=== PATIENT | female | born 1940 | race Caucasian/White ===

== ENCOUNTER 2017-03-14 07:33 | Emergency (ER) | payer MEDICARE, BC ==
[~2017-03-14] VITALS: Ht 167.6 cm; Wt 115.9 kg
[~2017-03-14 07:33] MED LIST: ACTONEL35 MG OR; ACTONEL5 MG PO; ALTACE5 MG PO; AMOXICILLIN875 MG OR; ASA LO-DOSE81 MG OR; BABY ASPIRIN81 MG OR; BACTRIM DS1 TAB OR; BAYER ASPIRIN E81 MG PO; CALCIUM600 M1 OR; CALCIUM600 M1 PO; CELEBREX100 MG PO; CEPHALEXIN500 MG PO; CIPRO500 MG PO; CIPRODEX1 ML AD; CLOTRIMAZOLE12 EX; DIFLUCAN150 MG OR; DIFLUCAN150 MG PO; DOXYCYCL HYC100 MG PO; HYDROCHLOROT25 MG OR; IPRATROPIU0.5 MG/3 M IN; LEVOTHYROXIN100 MCG PO; LORTAB 10-325 M1 TAB PO; LOTRISON1 EX; METFORMIN500 MG PO; MULTI VIT PO; NAPROSYN500 MG OR; NO MEDS; NYSTAT/TRIA2 EX; NYSTATIN100000 M1 OR; PROAIR HFA IN; RAMIPRIL2.5 MG PO; STERAPRED DS10 MG; SYNTHROID175 MCG OR; TETRACYCLINE250 MG PO; ULTRAM50 MG OR
[2017-03-14] MEDS ORDERED: ADULT ASPIRIN E81 MG PO (07:56)
[2017-03-14 08:03] LABS: HEMATOCRIT 40.7 % (37.0-47.0); IMMATURE GRANULOCYTES 0.4 % (0.0-1.0); MEAN CELL VOLUME 85.9 fL CALC (80.0-100.0); MEAN CORPUSCULAR HGB 27.4 pG CALC (26.0-32.0); MEAN CORPUSCULAR HGB CONC 31.9 g/L CALC (32.0-36.0); NEUT# 6.64 thou/uL (2.00-7.15); RED BLOOD COUNT 4.74 mill/uL (4.20-5.60); RED CELL DISTRI WIDTH 14.7 % (11.5-15.5)
[2017-03-14 08:14] LABS: ANION GAP 14 (6-22 (CALC)); BUN 10 mg/dL (8-23); BUN/CREATININE RATIO 11 (12-20 (CALC)); CALCIUM 9.6 mg/dL (8.4-10.2); CARBON DIOXIDE 28 mmol/l (22-30); CHLORIDE 99 mmol/l (95-108); CREATININE 0.9 mg/dL (0.5-1.0); GFR > 60 ML/MIN (>=60 (CALC)); GFR FOR AFR.AMER. > 60 ML/MIN (>=60 (CALC)); GLUCOSE 137 mg/dL (82-115); POTASSIUM 4.5 mmol/l (3.5-5.1); SODIUM 137 mmol/l (137-146)
[2017-03-14] MEDS ORDERED: ALBUTEROL SUL0.083 % IN (08:31)
[2017-03-14] MEDS ORDERED: ZPAK PO (08:31)
[2017-03-14] MEDS ORDERED: PREDNISONE50 MG PO (08:31)
[2017-03-14 08:45] VITALS: BP 111/54
== END 2017-03-14 08:55 | disposition home or self-care (01) ==
LOC: ED 07:33
PROVIDERS: Family Medicine
DX: J44.1 Chronic obstructive pulmonary disease with (acute) exacerbation (principal); R06.02 Shortness of breath; R05 Cough; R06.2 Wheezing

== ENCOUNTER 2017-03-16 12:28 | Inpatient (IN) | payer MEDICARE, BC ==
[~2017-03-16] VITALS: Ht 167.6 cm; Wt 118.0 kg
[~2017-03-16 12:28] MED LIST changes: +ADULT ASPIRIN E81 MG PO; +ALBUTEROL SUL0.083 % IN; +PREDNISONE50 MG PO; +ZPAK PO
[2017-03-16 13:02] LABS: HEMATOCRIT 38.3 % (37.0-47.0); HEMOGLOBIN 12.4 g/dl (12.0-16.0); IMMATURE GRANULOCYTES 0.7 % (0.0-1.0); MEAN CELL VOLUME 84.9 fL CALC (80.0-100.0); MEAN CORPUSCULAR HGB 27.5 pG CALC (26.0-32.0); MEAN CORPUSCULAR HGB CONC 32.4 g/L CALC (32.0-36.0); NEUT# 14.19 thou/uL (2.00-7.15); RED BLOOD COUNT 4.51 mill/uL (4.20-5.60); RED CELL DISTRI WIDTH 14.9 % (11.5-15.5)
[2017-03-16 13:17] LABS: ALBUMIN 4.1 g/dL (3.2-5.0); ALKALINE PHOSPHATASE 77 u/l (38-126); ANION GAP 14 (6-22 (CALC)); BILIRUBIN, TOTAL 0.5 mg/dL (0.0-1.4); BUN 16 mg/dL (8-23); BUN/CREATININE RATIO 18 (12-20 (CALC)); CALCIUM 9.2 mg/dL (8.4-10.2); CARBON DIOXIDE 27 mmol/l (22-30); CHLORIDE 99 mmol/l (95-108); CREATININE 0.9 mg/dL (0.5-1.0); GFR > 60 ML/MIN (>=60 (CALC)); GFR FOR AFR.AMER. > 60 ML/MIN (>=60 (CALC)); GLUCOSE 111 mg/dL (82-115); POTASSIUM 4.3 mmol/l (3.5-5.1); SGOT/AST 35 u/l (9-36); SGPT/ALT 46 u/l (11-66); SODIUM 136 mmol/l (137-146); TOTAL PROTEIN 6.8 g/dL (6.3-8.2)
[2017-03-16 13:26] LABS: MYOGLOBIN 153 ng/mL (0 - 62)
[2017-03-16 15:36] VITALS: BP 148/88
[2017-03-16 18:55] VITALS: BP 147/87
[2017-03-16 23:55] VITALS: BP 138/82
[2017-03-17 04:41] VITALS: BP 147/80
[2017-03-17 05:19] LABS: HEMATOCRIT 36.4 % (37.0-47.0); HEMOGLOBIN 11.9 g/dl (12.0-16.0); MEAN CELL VOLUME 83.9 fL CALC (80.0-100.0); MEAN CORPUSCULAR HGB 27.4 pG CALC (26.0-32.0); MEAN CORPUSCULAR HGB CONC 32.7 g/L CALC (32.0-36.0); RED BLOOD COUNT 4.34 mill/uL (4.20-5.60); RED CELL DISTRI WIDTH 14.7 % (11.5-15.5)
[2017-03-17 05:56] LABS: ANION GAP 10 (6-22 (CALC)); BUN 11 mg/dL (8-23); BUN/CREATININE RATIO 14 (12-20 (CALC)); CALCIUM 9.2 mg/dL (8.4-10.2); CARBON DIOXIDE 30 mmol/l (22-30); CHLORIDE 99 mmol/l (95-108); CREATININE 0.8 mg/dL (0.5-1.0); GFR > 60 ML/MIN (>=60 (CALC)); GFR FOR AFR.AMER. > 60 ML/MIN (>=60 (CALC)); GLUCOSE 156 mg/dL (82-115); POTASSIUM 4.7 mmol/l (3.5-5.1); SODIUM 135 mmol/l (137-146)
[2017-03-17 07:45] VITALS: BP 142/79
[2017-03-17 11:55] VITALS: BP 137/57
[2017-03-17 15:47] VITALS: BP 124/62
[2017-03-17 20:00] VITALS: BP 124/65
[2017-03-18 04:00] VITALS: BP 140/73
[2017-03-18 05:15] LABS: HEMATOCRIT 36.6 % (37.0-47.0); HEMOGLOBIN 11.9 g/dl (12.0-16.0); IMMATURE GRANULOCYTES 1.3 % (0.0-1.0); MEAN CELL VOLUME 83.8 fL CALC (80.0-100.0); MEAN CORPUSCULAR HGB 27.2 pG CALC (26.0-32.0); MEAN CORPUSCULAR HGB CONC 32.5 g/L CALC (32.0-36.0); NEUT# 19.07 thou/uL (2.00-7.15); RED BLOOD COUNT 4.37 mill/uL (4.20-5.60)
[2017-03-18 05:19] LABS: ANION GAP 13 (6-22 (CALC)); BUN 14 mg/dL (8-23); BUN/CREATININE RATIO 17 (12-20 (CALC)); CALCIUM 9.3 mg/dL (8.4-10.2); CARBON DIOXIDE 28 mmol/l (22-30); CHLORIDE 99 mmol/l (95-108); CREATININE 0.8 mg/dL (0.5-1.0); GFR > 60 ML/MIN (>=60 (CALC)); GFR FOR AFR.AMER. > 60 ML/MIN (>=60 (CALC)); GLUCOSE 152 mg/dL (82-115); MAGNESIUM 2.2 mg/dL (1.6-2.3); SODIUM 135 mmol/l (137-146)
[2017-03-18 07:32] VITALS: BP 139/77
[2017-03-18 09:30] LABS: URINE BILIRUBIN - DIPSTICK NEGATIVE (NEGATIVE); URINE BLOOD DIPSTICK NEGATIVE (NEGATIVE); URINE CLARITY CLEAR; URINE COLOR YELLOW; URINE GLUCOSE - DIPSTICK NEGATIVE (NEGATIVE); URINE KETONE NEGATIVE (NEGATIVE); URINE LEUK ESTERASE NEGATIVE (NEGATIVE); URINE NITRITE - DIPSTICK NEGATIVE (Negative); URINE PROTEIN - DIPSTICK NEGATIVE (NEG-TRACE); URINE SPECIFIC GRAVITY <=1.005; URINE UROBILINOGEN - DIPSTICK 0.2 E.U./dL (0.2)
[2017-03-18 11:00] VITALS: BP 143/74
[2017-03-18] MEDS ORDERED: PEPCID20 MG PO (11:03)
[2017-03-18] MEDS ORDERED: ALBUTEROL SUL0.083 % IN (11:03)
[2017-03-18] MEDS ORDERED: PREDNISONE10 MG PO (11:05)
[2017-03-18] MEDS ORDERED: Levaquin PO (11:05)
[2017-03-18] MEDS ORDERED: ROBITUSSIN AC10 ML PO (11:06)
== END 2017-03-18 12:40 | disposition home or self-care (01) | DRG 192 ==
LOC: ED 12:28 → ED-I 13:33 → ED 14:42 → MS2 14:43
PROVIDERS: Emergency Medicine; Nurse Practitioner Family; ADMIT Internal Medicine; ATTEND Internal Medicine
DX: J44.1 Chronic obstructive pulmonary disease with (acute) exacerbation (principal); E11.65 Type 2 diabetes mellitus with hyperglycemia; E03.9 Hypothyroidism, unspecified; I10 Essential (primary) hypertension; M19.90 Unspecified osteoarthritis, unspecified site; R09.02 Hypoxemia; T38.0X5D Adverse effect of glucocorticoids and synthetic analogues, subsequent encounter; Z79.84 Long term (current) use of oral hypoglycemic drugs; Z87.891 Personal history of nicotine dependence
CPT/HCPCS: J1650

== ENCOUNTER 2018-03-07 07:42 | Observation (INO) | payer MEDICARE, BC ==
[~2018-03-07] VITALS: Ht 167.6 cm; Wt 123.0 kg
[~2018-03-07 07:42] MED LIST changes: +Levaquin PO; +PEPCID20 MG PO; +PREDNISONE10 MG PO; +ROBITUSSIN AC10 ML PO
[2018-03-07 08:07] LABS: HEMATOCRIT 40.8 % (37.0-47.0); HEMOGLOBIN 12.8 g/dl (12.0-16.0); IMMATURE GRANULOCYTES 0.4 % (0.0-5.0); MEAN CELL VOLUME 87.6 fL CALC (80.0-100.0); MEAN CORPUSCULAR HGB 27.5 pG CALC (26.0-32.0); MEAN CORPUSCULAR HGB CONC 31.4 g/L CALC (32.0-36.0); NEUT# 10.68 thou/uL (2.00-7.15); RED BLOOD COUNT 4.66 mill/uL (4.20-5.60); RED CELL DISTRI WIDTH 14.6 % (11.5-15.5)
[2018-03-07 08:19] LABS: ALKALINE PHOSPHATASE 69 u/l (38-126); ANION GAP 14 (6-22 (CALC)); BILIRUBIN, TOTAL 0.6 mg/dL (0.0-1.4); BUN 12 mg/dL (8-23); BUN/CREATININE RATIO 12 (12-20 (CALC)); CARBON DIOXIDE 27 mmol/l (22-30); CHLORIDE 103 mmol/l (95-108); GFR 54 ML/MIN (>=60 (CALC)); GFR FOR AFR.AMER. > 60 ML/MIN (>=60 (CALC)); POTASSIUM 4.4 mmol/l (3.5-5.1); SODIUM 140 mmol/l (137-146)
[2018-03-07 08:30] LABS: SGOT/AST 36 u/l (9-36)
[2018-03-07 08:31] LABS: MYOGLOBIN 53 ng/mL (0 - 62)
[2018-03-07 09:05] LABS: INFLUENZA A NONE DETECTED (NONE DETECT); INFLUENZA B NONE DETECTED (NONE DETECT)
[2018-03-07] MEDS ORDERED: LASIX 40 MG40 MG/TAB PO (09:06)
[2018-03-07 10:23] VITALS: BP 111/55
[2018-03-07 11:07] LABS: URINE BILIRUBIN - DIPSTICK NEGATIVE (NEGATIVE); URINE BLOOD DIPSTICK NEGATIVE (NEGATIVE); URINE COLOR YELLOW; URINE GLUCOSE - DIPSTICK NEGATIVE (NEGATIVE); URINE KETONE NEGATIVE (NEGATIVE); URINE LEUK ESTERASE NEGATIVE (NEGATIVE); URINE NITRITE - DIPSTICK NEGATIVE (Negative); URINE PH 6.5 (4.5-8.0); URINE PROTEIN - DIPSTICK NEGATIVE (NEG-TRACE); URINE UROBILINOGEN - DIPSTICK 0.2 E.U./dL (0.2)
[2018-03-07 11:08] LABS: URINE CLARITY CLEAR
[2018-03-07 12:45] VITALS: BP 125/70
[2018-03-07 16:15] VITALS: BP 127/70
[2018-03-07 20:00] VITALS: BP 104/56
[2018-03-08 00:15] VITALS: BP 131/69
[2018-03-08 04:00] VITALS: BP 126/67
[2018-03-08 07:57] VITALS: BP 129/49
[2018-03-08 09:11] LABS: HEMATOCRIT 35.2 % (37.0-47.0); IMMATURE GRANULOCYTES 0.7 % (0.0-5.0); MEAN CORPUSCULAR HGB 27.1 pG CALC (26.0-32.0); MEAN CORPUSCULAR HGB CONC 30.1 g/L CALC (32.0-36.0); NEUT# 14.47 thou/uL (2.00-7.15); RED BLOOD COUNT 3.91 mill/uL (4.20-5.60)
[2018-03-08 09:31] LABS: HEMOGLOBIN 10.6 g/dl (12.0-16.0)
[2018-03-08 09:37] LABS: ANION GAP 8 (6-22 (CALC)); BUN 12 mg/dL (8-23); BUN/CREATININE RATIO 14 (12-20 (CALC)); CARBON DIOXIDE 25 mmol/l (22-30); CHLORIDE 109 mmol/l (95-108); CREATININE 0.8 mg/dL (0.5-1.0); GFR > 60 ML/MIN (>=60 (CALC)); GFR FOR AFR.AMER. > 60 ML/MIN (>=60 (CALC)); MAGNESIUM 2.2 mg/dL (1.6-2.3); POTASSIUM 4.5 mmol/l (3.5-5.1); SODIUM 138 mmol/l (137-146)
[2018-03-08 11:17] VITALS: BP 122/48
[2018-03-08] MEDS ORDERED: ZITHROMAX500 MG PO (14:55)
[2018-03-08] MEDS ORDERED: PREDNISONE10 MG PO (14:55)
[2018-03-08] MEDS ORDERED: ALBUTEROL SUL0.083 % IN (14:55)
[2018-03-08 15:20] VITALS: BP 116/43
[2018-03-08] MEDS ORDERED: PROVENTIL0.083 % IN (15:27)
== END 2018-03-08 15:33 | disposition home or self-care (01) ==
LOC: ED 07:42 → ED-I 08:52 → ED 09:05 → MS2 09:06
PROVIDERS: Emergency Medicine; Nurse Practitioner Family; ADMIT Internal Medicine; ATTEND Internal Medicine
DX: J44.1 Chronic obstructive pulmonary disease with (acute) exacerbation (principal); J20.9 Acute bronchitis, unspecified; J44.0 Chronic obstructive pulmonary disease with (acute) lower respiratory infection; R09.02 Hypoxemia; E11.22 Type 2 diabetes mellitus with diabetic chronic kidney disease; I12.9 Hypertensive chronic kidney disease with stage 1 through stage 4 chronic kidney disease, or unspecified chronic kidney disease; N18.3 Chronic kidney disease, stage 3 (moderate); E03.9 Hypothyroidism, unspecified; E66.9 Obesity, unspecified; K59.00 Constipation, unspecified; M15.9 Polyosteoarthritis, unspecified; Z87.891 Personal history of nicotine dependence; Z68.41 Body mass index [BMI] 40.0-44.9, adult; Z79.84 Long term (current) use of oral hypoglycemic drugs
CPT/HCPCS: J1650

== ENCOUNTER 2018-09-20 07:53 | Emergency (ER) | payer MEDICARE, BC ==
[~2018-09-20] VITALS: Ht 167.6 cm; Wt 105.0 kg
[~2018-09-20 07:53] MED LIST changes: +LASIX 40 MG40 MG/TAB PO; +PROVENTIL0.083 % IN; +ZITHROMAX500 MG PO
[2018-09-20] MEDS ORDERED: RISEDRONATE SO150 MG PO (08:09)
[2018-09-20] MEDS ORDERED: MOTRIN400 MG PO (08:35)
[2018-09-20] MEDS ORDERED: VOLTAREN1%GEL TOP (08:56)
[2018-09-20] MEDS ORDERED: CYCLOBENZAPR5 MG PO (08:58)
[2018-09-20 09:00] VITALS: BP 149/79
== END 2018-09-20 09:00 | disposition home or self-care (01) ==
LOC: ED 07:53
DX: M79.18 Myalgia, other site (principal); S76.011A Strain of muscle, fascia and tendon of right hip, initial encounter

== ENCOUNTER 2018-11-24 08:21 | Emergency (ER) | payer MEDICARE, BC ==
[~2018-11-24] VITALS: Ht 167.6 cm; Wt 115.0 kg
[~2018-11-24 08:21] MED LIST changes: +CYCLOBENZAPR5 MG PO; +MOTRIN400 MG PO; +RISEDRONATE SO150 MG PO; +VOLTAREN1%GEL TOP
[2018-11-24 08:57] LABS: HEMATOCRIT 37.3 % (37.0-47.0); HEMOGLOBIN 11.5 g/dl (12.0-16.0); IMMATURE GRANULOCYTES 0.3 % (0.0-5.0); MEAN CELL VOLUME 87.4 fL CALC (80.0-100.0); MEAN CORPUSCULAR HGB 26.9 pG CALC (26.0-32.0); MEAN CORPUSCULAR HGB CONC 30.8 g/L CALC (32.0-36.0); NEUT# 6.58 thou/uL (2.00-7.15); RED BLOOD COUNT 4.27 mill/uL (4.20-5.60); RED CELL DISTRI WIDTH 14.1 % (11.5-15.5)
[2018-11-24 09:13] LABS: ANION GAP 12 (6-22 (CALC)); BUN 8 mg/dL (8-23); BUN/CREATININE RATIO 10 (12-20 (CALC)); CARBON DIOXIDE 32 mmol/l (22-30); CHLORIDE 99 mmol/l (95-108); CREATININE 0.8 mg/dL (0.5-1.0); GFR > 60 ML/MIN (>=60 (CALC)); GFR FOR AFR.AMER. > 60 ML/MIN (>=60 (CALC)); POTASSIUM 4.4 mmol/l (3.5-5.1); SODIUM 139 mmol/l (137-146)
[2018-11-24] MEDS ORDERED: PROAIR HFA108 MCG/AC PO (09:29)
[2018-11-24] MEDS ORDERED: PREDNISONE50 MG PO (09:29)
[2018-11-24] MEDS ORDERED: ZPAK PO (09:29)
[2018-11-24 09:36] VITALS: BP 150/67
== END 2018-11-24 09:45 | disposition home or self-care (01) ==
LOC: ED 08:21
PROVIDERS: Family Medicine
DX: J40 Bronchitis, not specified as acute or chronic (principal); R06.02 Shortness of breath; R05 Cough; R06.2 Wheezing

== ENCOUNTER 2019-05-13 | Emergency (ER) | payer MEDICARE, BC ==
[~2019-05-13] MED LIST changes: +LEVOTHYROXIN175 MC1 PO; +PROAIR HFA108 MCG/AC PO
[2019-05-13] MEDS ORDERED: FLEXERIL PO (09:48)
[2019-05-13] MEDS ORDERED: HYDROCO/APAP1 TA9 PO (09:48)
== END 2019-05-13 09:59 | disposition home or self-care (01) ==
DX: S39.012A Strain of muscle, fascia and tendon of lower back, initial encounter (principal); I10 Essential (primary) hypertension; E03.9 Hypothyroidism, unspecified; J44.9 Chronic obstructive pulmonary disease, unspecified; E11.9 Type 2 diabetes mellitus without complications; X58.XXXA Exposure to other specified factors, initial encounter; Z79.84 Long term (current) use of oral hypoglycemic drugs

== ENCOUNTER 2019-07-05 | Emergency (ER) | payer MEDICARE, BC ==
[~2019-07-05] MED LIST changes: +FLEXERIL PO; +HYDROCO/APAP1 TA9 PO
--- NOTE | 2019-07-05 20:27 | NUR ---
BREATHING TREATMENT GIVEN FOR WHEEZING.BREATHING TECH. FOR GOOD DEPOSITION TO THE LUNGS.
[2019-07-05 20:39] LABS: HEMATOCRIT 38.3 % (37.0-47.0); HEMOGLOBIN 11.8 g/dl (12.0-16.0); IMMATURE GRANULOCYTES 0.5 % (0.0-5.0); MEAN CELL VOLUME 85.9 fL CALC (80.0-100.0); MEAN CORPUSCULAR HGB 26.5 pG CALC (26.0-32.0); MEAN CORPUSCULAR HGB CONC 30.8 g/L CALC (32.0-36.0); NEUT# 8.64 thou/uL (2.00-7.15); RED BLOOD COUNT 4.46 mill/uL (4.20-5.60); RED CELL DISTRI WIDTH 14.2 % (11.5-15.5)
[2019-07-05 21:04] LABS: ALKALINE PHOSPHATASE 68 u/l (38-126); ANION GAP 12 (6-22 (CALC)); BILIRUBIN, TOTAL 0.4 mg/dL (0.0-1.4); BUN 14 mg/dL (8-23); BUN/CREATININE RATIO 16 (12-20 (CALC)); CARBON DIOXIDE 33 mmol/l (22-30); CHLORIDE 93 mmol/l (95-108); CREATININE 0.9 mg/dL (0.5-1.0); GFR > 60 ML/MIN (>=60 (CALC)); GFR FOR AFR.AMER. > 60 ML/MIN (>=60 (CALC)); POTASSIUM 4.5 mmol/l (3.5-5.1); SGOT/AST 18 u/l (9-36); SODIUM 134 mmol/l (137-146); TOTAL PROTEIN 6.6 g/dL (6.3-8.2)
[2019-07-05 21:19] LABS: MYOGLOBIN 40 ng/mL (0 - 62)
[2019-07-05] MEDS ORDERED: ZITHROMAX250 MG PO (23:07)
[2019-07-05] MEDS ORDERED: TESSALON PER100 MG PO (23:08)
[2019-07-05] MEDS ORDERED: MEDDOSEPAK PO (23:08)
== END 2019-07-05 23:40 | disposition home or self-care (01) ==
PROVIDERS: Emergency Medicine
DX: J44.9 Chronic obstructive pulmonary disease, unspecified (principal); I10 Essential (primary) hypertension; E11.9 Type 2 diabetes mellitus without complications; E03.9 Hypothyroidism, unspecified; Z79.84 Long term (current) use of oral hypoglycemic drugs; R06.02 Shortness of breath

== ENCOUNTER 2019-07-08 | Emergency (ER) | payer MEDICARE, BC ==
[~2019-07-08] MED LIST changes: +MEDDOSEPAK PO; +TESSALON PER100 MG PO; +ZITHROMAX250 MG PO
[2019-07-08 09:36] LABS: HEMATOCRIT 41.3 % (37.0-47.0); HEMOGLOBIN 12.6 g/dl (12.0-16.0); IMMATURE GRANULOCYTES 0.6 % (0.0-5.0); MEAN CELL VOLUME 85.9 fL CALC (80.0-100.0); MEAN CORPUSCULAR HGB 26.2 pG CALC (26.0-32.0); MEAN CORPUSCULAR HGB CONC 30.5 g/dL CAL (32.0-36.0); NEUT# 11.26 thou/uL (2.00-7.15); RED BLOOD COUNT 4.81 mill/uL (4.20-5.60); RED CELL DISTRI WIDTH 14.6 % (11.5-15.5)
[2019-07-08] MEDS ORDERED: COZAAR25 MG PO (09:36)
[2019-07-08] MEDS ORDERED: BREO ELLIPTA 101 INH IN (09:37)
[2019-07-08 10:19] LABS: ALBUMIN 4.2 g/dL (3.2-5.0); ALKALINE PHOSPHATASE 72 u/l (38-126); ANION GAP 13 (6-22 (CALC)); BILIRUBIN, TOTAL 0.5 mg/dL (0.0-1.4); BUN 18 mg/dL (8-23); BUN/CREATININE RATIO 20 (12-20 (CALC)); CARBON DIOXIDE 32 mmol/l (22-30); CHLORIDE 95 mmol/l (95-108); CREATININE 0.9 mg/dL (0.5-1.0); GFR > 60 ML/MIN (>=60 (CALC)); GFR FOR AFR.AMER. > 60 ML/MIN (>=60 (CALC)); POTASSIUM 4.1 mmol/l (3.5-5.1); SODIUM 136 mmol/l (137-146); TOTAL PROTEIN 7.1 g/dL (6.3-8.2)
[2019-07-08 10:23] LABS: SGOT/AST 33 u/l (9-36)
[2019-07-08 10:30] LABS: MYOGLOBIN 52 ng/mL (0 - 62)
[2019-07-08] MEDS ORDERED: ATIVAN0.5 MG PO (13:21)
== END 2019-07-08 14:53 | disposition home or self-care (01) ==
PROVIDERS: Family Medicine
DX: J44.1 Chronic obstructive pulmonary disease with (acute) exacerbation (principal); R09.02 Hypoxemia; F41.9 Anxiety disorder, unspecified; I10 Essential (primary) hypertension; E03.9 Hypothyroidism, unspecified; E11.9 Type 2 diabetes mellitus without complications; E66.9 Obesity, unspecified; Z79.84 Long term (current) use of oral hypoglycemic drugs; Z20.828 Contact with and (suspected) exposure to other viral communicable diseases
CPT/HCPCS: J2060; Q9967

== ENCOUNTER 2019-07-13 | Emergency (ER) | payer MEDICARE, BC ==
[~2019-07-13] MED LIST changes: +ATIVAN0.5 MG PO; +BREO ELLIPTA 101 INH IN; +COZAAR25 MG PO
[2019-07-13 07:55] LABS: HEMATOCRIT 41.3 % (37.0-47.0); HEMOGLOBIN 12.7 g/dl (12.0-16.0); IMMATURE GRANULOCYTES 0.8 % (0.0-5.0); MEAN CELL VOLUME 85.9 fL CALC (80.0-100.0); MEAN CORPUSCULAR HGB 26.4 pG CALC (26.0-32.0); MEAN CORPUSCULAR HGB CONC 30.8 g/dL CAL (32.0-36.0); NEUT# 10.52 thou/uL (2.00-7.15); RED BLOOD COUNT 4.81 mill/uL (4.20-5.60); RED CELL DISTRI WIDTH 14.5 % (11.5-15.5)
[2019-07-13 08:16] LABS: ALBUMIN 3.9 g/dL (3.2-5.0); ALKALINE PHOSPHATASE 75 u/l (38-126); ANION GAP 12 (6-22 (CALC)); BUN 13 mg/dL (8-23); BUN/CREATININE RATIO 16 (12-20 (CALC)); CARBON DIOXIDE 30 mmol/l (22-30); CHLORIDE 96 mmol/l (95-108); CREATININE 0.8 mg/dL (0.5-1.0); D-DIMER 0.51 mg/L (0.19-0.60); GFR > 60 ML/MIN (>=60 (CALC)); GFR FOR AFR.AMER. > 60 ML/MIN (>=60 (CALC)); POTASSIUM 4.4 mmol/l (3.5-5.1); SGOT/AST 21 u/l (9-36); SODIUM 134 mmol/l (137-146); TOTAL PROTEIN 6.6 g/dL (6.3-8.2)
[2019-07-13 08:28] LABS: MYOGLOBIN 49 ng/mL (0 - 62)
[2019-07-13 08:29] LABS: BILIRUBIN, TOTAL 0.8 mg/dL (0.0-1.4)
[2019-07-13 09:48] LABS: URINE BILIRUBIN - DIPSTICK NEGATIVE (NEGATIVE); URINE BLOOD DIPSTICK NEGATIVE (NEGATIVE); URINE COLOR YELLOW; URINE GLUCOSE - DIPSTICK NEGATIVE (NEGATIVE); URINE KETONE TRACE mg/dL (NEGATIVE); URINE LEUK ESTERASE NEGATIVE (NEGATIVE); URINE NITRITE - DIPSTICK NEGATIVE (Negative); URINE PH 7.5 (4.5-8.0); URINE PROTEIN - DIPSTICK NEGATIVE (NEG-TRACE); URINE UROBILINOGEN - DIPSTICK 0.2 E.U./dL (0.2)
[2019-07-13] MEDS ORDERED: PREDNISONE20 MG PO (10:53)
[2019-07-13] MEDS ORDERED: IPRATROPIU0.5 MG/3 M IN (10:53)
== END 2019-07-13 11:38 | disposition home or self-care (01) ==
PROVIDERS: Emergency Medicine
DX: J44.1 Chronic obstructive pulmonary disease with (acute) exacerbation (principal); R09.02 Hypoxemia; I10 Essential (primary) hypertension; E03.9 Hypothyroidism, unspecified; E11.9 Type 2 diabetes mellitus without complications; E66.9 Obesity, unspecified; Z79.84 Long term (current) use of oral hypoglycemic drugs

== ENCOUNTER 2019-08-12 | Emergency (ER) | payer MEDICARE, BC ==
[~2019-08-12] MED LIST changes: +PREDNISONE20 MG PO
[2019-08-12] MEDS ORDERED: METOPROL TAR25 MG PO (14:32)
== END 2019-08-12 14:59 | disposition home or self-care (01) ==
DX: S61.412A Laceration without foreign body of left hand, initial encounter (principal); I10 Essential (primary) hypertension; E03.9 Hypothyroidism, unspecified; J44.9 Chronic obstructive pulmonary disease, unspecified; E11.9 Type 2 diabetes mellitus without complications; W22.8XXA Striking against or struck by other objects, initial encounter; Z79.84 Long term (current) use of oral hypoglycemic drugs

== ENCOUNTER 2022-04-11 08:14 | Emergency (ER) | payer MEDICARE, BC ==
[~2022-04-11] VITALS: Ht 167.6 cm; Wt 114.0 kg
[2022-04-11] VITALS (9 sets, daily range): BP systolic 128–151; BP diastolic 67–84
[~2022-04-11 08:14] MED LIST changes: +METOPROL TAR25 MG PO
== END 2022-04-11 10:24 | disposition home or self-care (01) ==
LOC: ED 08:14
DX: R05.9 Cough, unspecified (principal); J44.9 Chronic obstructive pulmonary disease, unspecified; I10 Essential (primary) hypertension; E03.9 Hypothyroidism, unspecified; E11.9 Type 2 diabetes mellitus without complications; E66.9 Obesity, unspecified; Z79.84 Long term (current) use of oral hypoglycemic drugs; Z20.822 Contact with and (suspected) exposure to COVID-19

== ENCOUNTER 2022-04-13 07:41 | Emergency (ER) | payer MEDICARE, BC ==
[2022-04-13] VITALS (9 sets, daily range): BP systolic 110–134; BP diastolic 58–80
[~2022-04-13] VITALS: Ht 167.6 cm; Wt 113.0 kg
[2022-04-13 08:04] LABS: BASO% 0.5 % (0-3); EOS% 5.3 % (0-8); HEMOGLOBIN 11.2 g/dl (12.0-16.0); IMMATURE GRANULOCYTES 0.3 % (0.0-5.0); MEAN CELL VOLUME 83.5 fL CALC (80.0-100.0); MEAN CORPUSCULAR HGB CONC 31.1 g/dL CAL (32.0-36.0); NEUT# 6.03 thou/uL (2.00-7.15); NEUT% 60.9 % (42-76); RED BLOOD COUNT 4.31 mill/uL (4.20-5.60)
[2022-04-13 08:18] LABS: ALKALINE PHOSPHATASE 86 u/l (38-126); ANION GAP 10 (6-22 (CALC)); BILIRUBIN, TOTAL 0.4 mg/dL (0.0-1.4); BUN 8 mg/dL (8-23); BUN/CREATININE RATIO 8 (12-20 (CALC)); CARBON DIOXIDE 29 mmol/l (22-30); CHLORIDE 99 mmol/l (95-108); GFR FOR AFR.AMER. > 60 ML/MIN (>=60 (CALC)); GFR OTHER RACES 53 ML/MIN (>=60 (CALC)); SGOT/AST 22 u/l (9-36); SODIUM 134 mmol/l (137-146)
[2022-04-13] MEDS ORDERED: ALBUTEROL SUL0.083 % IN (09:35)
[2022-04-13] MEDS ORDERED: VENTOLIN HFA IN (09:35)
[2022-04-13] MEDS ORDERED: PREDNISONE50 MG PO (09:35)
== END 2022-04-13 09:53 | disposition home or self-care (01) ==
LOC: ED 07:41
PROVIDERS: Emergency Medicine
DX: J20.9 Acute bronchitis, unspecified (principal); J44.0 Chronic obstructive pulmonary disease with (acute) lower respiratory infection; I10 Essential (primary) hypertension; E66.9 Obesity, unspecified; E03.9 Hypothyroidism, unspecified; E11.9 Type 2 diabetes mellitus without complications; Z79.84 Long term (current) use of oral hypoglycemic drugs

== ENCOUNTER 2022-09-15 13:23 | Emergency (ER) | payer MEDICARE, BC ==
[2022-09-15] VITALS (11 sets, daily range): BP systolic 120–144; BP diastolic 49–84
[~2022-09-15] VITALS: Ht 167.6 cm; Wt 113.4 kg
[~2022-09-15 13:23] MED LIST changes: +VENTOLIN HFA IN
== END 2022-09-15 15:50 | disposition home or self-care (01) ==
LOC: ED 13:23
DX: K12.1 Other forms of stomatitis (principal); B37.0 Candidal stomatitis; I10 Essential (primary) hypertension; E66.9 Obesity, unspecified; E03.9 Hypothyroidism, unspecified; J44.9 Chronic obstructive pulmonary disease, unspecified; E11.9 Type 2 diabetes mellitus without complications

== ENCOUNTER 2023-04-15 07:22 | Observation (INO) | payer OTHER, MEDICARE, BC ==
[~2023-04-15] VITALS: Ht 167.6 cm; Wt 116.5 kg
[2023-04-15] VITALS (17 sets, daily range): BP systolic 120–152; BP diastolic 52–70
[~2023-04-15 07:22] MED LIST changes: +AMOX/K CLAV875 M1 PO; +ANORO ELLIPTA 61 AER IN; +IPRATROPIU0.5 MG/3 M NEB; +OSELTAMIVIR PHO30 MG PO; +TOPROL XL25 MG PO
[2023-04-15 10:15] LABS: BASO% 0.4 % (0-3); EOS% 0.6 % (0-8); IMMATURE GRANULOCYTES 0.4 % (0.0-5.0); LYMPH% 6.1 % (15-41); MEAN CELL VOLUME 81.4 fL CALC (80.0-100.0); MEAN CORPUSCULAR HGB 25.2 pG CALC (26.0-32.0); MONO% 11.5 % (2-13); NEUT# 6.92 thou/uL (2.00-7.15); RED BLOOD COUNT 3.17 mill/uL (4.20-5.60); RED CELL DISTRI WIDTH 15.2 % (11.5-15.5)
[2023-04-15 10:22] LABS: HEMATOCRIT 25.8 % (37.0-47.0)
[2023-04-15 10:42] LABS: ALBUMIN 3.2 g/dL (3.2-5.0); ALKALINE PHOSPHATASE 71 u/l (38-126); ANION GAP 11 (6-22 (CALC)); BILIRUBIN, TOTAL 0.6 mg/dL (0.02-1.3); BUN 12 mg/dL (8-23); BUN/CREATININE RATIO 13 (12-20 (CALC)); CARBON DIOXIDE 25 mmol/l (22-30); CHLORIDE 99 mmol/l (95-108); CREATININE 0.9 mg/dL (0.5-1.0); GFR FOR AFR.AMER. > 60 ML/MIN (>=60 (CALC)); GFR OTHER RACES 60 ML/MIN (>=60 (CALC)); POTASSIUM 4.3 mmol/l (3.5-5.1); SGOT/AST 34 u/l (9-36); SODIUM 130 mmol/l (137-146); TOTAL PROTEIN 5.6 g/dL (6.3-8.2)
[2023-04-16] VITALS (10 sets, daily range): BP systolic 128–156; BP diastolic 44–64
[2023-04-16 12:13] LABS: HEMATOCRIT 25.3 % (37.0-47.0); HEMOGLOBIN 7.8 g/dl (12.0-16.0); MEAN CELL VOLUME 80.8 fL CALC (80.0-100.0); MEAN CORPUSCULAR HGB 24.9 pG CALC (26.0-32.0); MEAN CORPUSCULAR HGB CONC 30.8 g/dL CAL (32.0-36.0); RED BLOOD COUNT 3.13 mill/uL (4.20-5.60); RED CELL DISTRI WIDTH 15.1 % (11.5-15.5)
[2023-04-17 04:33] VITALS: BP 132/52
[2023-04-17 05:49] LABS: BASO% 0.3 % (0-3); EOS% 2.2 % (0-8); HEMATOCRIT 24.2 % (37.0-47.0); HEMOGLOBIN 7.6 g/dl (12.0-16.0); IMMATURE GRANULOCYTES 1.1 % (0.0-5.0); LYMPH% 8.6 % (15-41); MEAN CELL VOLUME 79.9 fL CALC (80.0-100.0); MEAN CORPUSCULAR HGB 25.1 pG CALC (26.0-32.0); MEAN CORPUSCULAR HGB CONC 31.4 g/dL CAL (32.0-36.0); MONO% 14.2 % (2-13); NEUT# 4.79 thou/uL (2.00-7.15); NEUT% 73.6 % (42-76); RED BLOOD COUNT 3.03 mill/uL (4.20-5.60); RED CELL DISTRI WIDTH 14.8 % (11.5-15.5)
[2023-04-17 06:10] LABS: ALBUMIN 2.8 g/dL (3.2-5.0); ALKALINE PHOSPHATASE 68 u/l (38-126); ANION GAP 10 (6-22 (CALC)); BILIRUBIN, TOTAL 0.5 mg/dL (0.02-1.3); BUN 12 mg/dL (8-23); BUN/CREATININE RATIO 13 (12-20 (CALC)); CARBON DIOXIDE 21 mmol/l (22-30); CHLORIDE 100 mmol/l (95-108); CREATININE 0.9 mg/dL (0.5-1.0); GFR FOR AFR.AMER. > 60 ML/MIN (>=60 (CALC)); GFR OTHER RACES 60 ML/MIN (>=60 (CALC)); MAGNESIUM 2.4 mg/dL (1.6-2.3); POTASSIUM 4.4 mmol/l (3.5-5.1); SGOT/AST 25 u/l (9-36); SODIUM 127 mmol/l (137-146); TOTAL PROTEIN 5.3 g/dL (6.3-8.2)
[2023-04-17 07:04] VITALS: BP 123/52
[2023-04-17 08:40] VITALS: BP 130/53
[2023-04-17 11:37] VITALS: BP 127/52
[2023-04-17 16:04] VITALS: BP 154/53
[2023-04-17 19:04] VITALS: BP 149/64
[2023-04-18 03:35] VITALS: BP 148/68
[2023-04-18 07:10] VITALS: BP 151/68
[2023-04-18 09:18] LABS: BASO% 0.1 % (0-3); EOS% 2.8 % (0-8); HEMATOCRIT 25.5 % (37.0-47.0); HEMOGLOBIN 7.9 g/dl (12.0-16.0); IMMATURE GRANULOCYTES 0.7 % (0.0-5.0); LYMPH% 11.9 % (15-41); MEAN CELL VOLUME 81.5 fL CALC (80.0-100.0); MEAN CORPUSCULAR HGB 25.2 pG CALC (26.0-32.0); MONO% 15.1 % (2-13); NEUT# 4.77 thou/uL (2.00-7.15); NEUT% 69.4 % (42-76); RED BLOOD COUNT 3.13 mill/uL (4.20-5.60); RED CELL DISTRI WIDTH 15.5 % (11.5-15.5)
[2023-04-18 09:53] VITALS: BP 127/62
[2023-04-18] MEDS ORDERED: FERROUS SULFAT325 MG PO (10:36)
[2023-04-18] MEDS ORDERED: LORTAB5 PO (10:37)
[2023-04-18 11:14] VITALS: BP 139/58
== END 2023-04-18 15:00 | disposition home or self-care (01) | DRG 184 ==
LOC: ED 07:22 → ED-I 10:50 → ED 11:08 → MS2 11:09
PROVIDERS: Emergency Medicine; Student in an Organized Health Care Education/Training Program; ADMIT Student in an Organized Health Care Education/Training Program; ATTEND Student in an Organized Health Care Education/Training Program
PROC: 0DJD8ZZ Inspection of Lower Intestinal Tract, Via Natural or Artificial Opening Endoscopic (ICD-10-PCS; principal; 2023-04-18)
DX: S22.41XA Multiple fractures of ribs, right side, initial encounter for closed fracture (principal); Z68.41 Body mass index [BMI] 40.0-44.9, adult; S80.02XA Contusion of left knee, initial encounter; D50.9 Iron deficiency anemia, unspecified; I12.9 Hypertensive chronic kidney disease with stage 1 through stage 4 chronic kidney disease, or unspecified chronic kidney disease; E11.22 Type 2 diabetes mellitus with diabetic chronic kidney disease; N18.30 Chronic kidney disease, stage 3 unspecified; J43.9 Emphysema, unspecified; E03.9 Hypothyroidism, unspecified; E66.9 Obesity, unspecified; V49.40XA Driver injured in collision with unspecified motor vehicles in traffic accident, initial encounter; Z87.891 Personal history of nicotine dependence
CPT/HCPCS: G0378; J1756

== ENCOUNTER 2023-05-10 04:03 | Emergency (ER) | payer OTHER, MEDICARE, BC ==
[~2023-05-10] VITALS: Ht 167.6 cm; Wt 111.0 kg
[~2023-05-10 04:03] MED LIST changes: +FERROUS SULFAT325 MG PO; +LORTAB5 PO
[2023-05-10 04:10] VITALS: BP 125/73
[2023-05-10] MEDS ORDERED: KEFLEX500 MG PO (04:18)
[2023-05-10 05:00] VITALS: BP 105/59
== END 2023-05-10 05:20 | disposition home or self-care (01) | DRG 605 ==
LOC: ED 04:03
DX: S80.02XA Contusion of left knee, initial encounter (principal); L03.116 Cellulitis of left lower limb; E11.22 Type 2 diabetes mellitus with diabetic chronic kidney disease; I12.9 Hypertensive chronic kidney disease with stage 1 through stage 4 chronic kidney disease, or unspecified chronic kidney disease; N18.9 Chronic kidney disease, unspecified; J44.9 Chronic obstructive pulmonary disease, unspecified; V89.2XXA Person injured in unspecified motor-vehicle accident, traffic, initial encounter

== ENCOUNTER 2023-05-15 15:42 | Inpatient (IN) | payer OTHER, MEDICARE, BC ==
[~2023-05-15] VITALS: Ht 167.6 cm; Wt 109.8 kg
[~2023-05-15 15:42] MED LIST changes: +KEFLEX500 MG PO
[2023-05-15 16:47] LABS: BASO% 0.2 % (0-3); EOS% 0.7 % (0-8); HEMOGLOBIN 9.5 g/dl (12.0-16.0); IMMATURE GRANULOCYTES 0.4 % (0.0-5.0); LYMPH% 11.3 % (15-41); MEAN CORPUSCULAR HGB 25.7 pG CALC (26.0-32.0); MEAN CORPUSCULAR HGB CONC 30.6 g/dL CAL (32.0-36.0); MONO% 11.4 % (2-13); NEUT# 6.19 thou/uL (2.00-7.15); RED BLOOD COUNT 3.69 mill/uL (4.20-5.60); RED CELL DISTRI WIDTH 16.9 % (11.5-15.5)
[2023-05-15 17:09] LABS: ALBUMIN 3.1 g/dL (3.2-5.0); ALKALINE PHOSPHATASE 101 u/l (38-126); BILIRUBIN, TOTAL 0.4 mg/dL (0.02-1.3); BUN 11 mg/dL (8-23); BUN/CREATININE RATIO 12 (12-20 (CALC)); C-REACTIVE PROTEIN 6.5 mg/dL (0-0.9); CHLORIDE 101 mmol/l (95-108); CREATININE 0.9 mg/dL (0.5-1.0); GFR FOR AFR.AMER. > 60 ML/MIN (>=60 (CALC)); GFR OTHER RACES 60 ML/MIN (>=60 (CALC)); POTASSIUM 4.4 mmol/l (3.5-5.1); SGOT/AST 22 u/l (9-36); SODIUM 131 mmol/l (137-146); TOTAL PROTEIN 5.5 g/dL (6.3-8.2)
[2023-05-15 17:18] LABS: ANION GAP 6 (6-22 (CALC)); CARBON DIOXIDE 28 mmol/l (22-30)
[2023-05-16] VITALS (7 sets, daily range): BP systolic 100–151; BP diastolic 44–70
[2023-05-16 07:29] LABS: BASO% 0.4 % (0-3); EOS% 1.3 % (0-8); HEMATOCRIT 30.4 % (37.0-47.0); HEMOGLOBIN 9.4 g/dl (12.0-16.0); IMMATURE GRANULOCYTES 0.2 % (0.0-5.0); LYMPH% 10.2 % (15-41); MEAN CELL VOLUME 83.5 fL CALC (80.0-100.0); MEAN CORPUSCULAR HGB 25.8 pG CALC (26.0-32.0); MEAN CORPUSCULAR HGB CONC 30.9 g/dL CAL (32.0-36.0); MONO% 12.2 % (2-13); NEUT# 6.42 thou/uL (2.00-7.15); NEUT% 75.7 % (42-76); RED BLOOD COUNT 3.64 mill/uL (4.20-5.60); RED CELL DISTRI WIDTH 16.9 % (11.5-15.5)
[2023-05-16 08:18] LABS: ACT PARTIAL THROMBO TIME 26.7 SECONDS (20.0-32.5); ANION GAP 8 (6-22 (CALC)); BUN 7 mg/dL (8-23); BUN/CREATININE RATIO 8 (12-20 (CALC)); CARBON DIOXIDE 25 mmol/l (22-30); CHLORIDE 103 mmol/l (95-108); CREATININE 0.8 mg/dL (0.5-1.0); GFR FOR AFR.AMER. > 60 ML/MIN (>=60 (CALC)); GFR OTHER RACES > 60 ML/MIN (>=60 (CALC)); INTERNATIONAL NORMALIZED RATIO 1.2 RATIO (0.7-1.3); POTASSIUM 4.4 mmol/l (3.5-5.1); SODIUM 131 mmol/l (137-146)
[2023-05-17] VITALS (12 sets, daily range): BP systolic 105–148; BP diastolic 45–77
[2023-05-17 05:26] LABS: BASO% 0.5 % (0-3); EOS% 2.7 % (0-8); HEMATOCRIT 32.9 % (37.0-47.0); HEMOGLOBIN 9.8 g/dl (12.0-16.0); IMMATURE GRANULOCYTES 0.4 % (0.0-5.0); LYMPH% 13.4 % (15-41); MEAN CELL VOLUME 86.8 fL CALC (80.0-100.0); MEAN CORPUSCULAR HGB 25.9 pG CALC (26.0-32.0); MEAN CORPUSCULAR HGB CONC 29.8 g/dL CAL (32.0-36.0); MONO% 11.6 % (2-13); NEUT# 5.46 thou/uL (2.00-7.15); NEUT% 71.4 % (42-76); RED BLOOD COUNT 3.79 mill/uL (4.20-5.60); RED CELL DISTRI WIDTH 17.1 % (11.5-15.5)
[2023-05-17 05:39] LABS: ALBUMIN 2.7 g/dL (3.2-5.0); ALKALINE PHOSPHATASE 84 u/l (38-126); ANION GAP 9 (6-22 (CALC)); BILIRUBIN, TOTAL 0.3 mg/dL (0.02-1.3); BUN 8 mg/dL (8-23); BUN/CREATININE RATIO 11 (12-20 (CALC)); CALCULATED LDLCHOLESTEROL 70 mg/dL (62-129 (CALC)); CARBON DIOXIDE 25 mmol/l (22-30); CHLORIDE 104 mmol/l (95-108); CHOLESTEROL HDL RATIO 3.6 (<4.4 (CALC)); CREATININE 0.8 mg/dL (0.5-1.0); GFR FOR AFR.AMER. > 60 ML/MIN (>=60 (CALC)); GFR OTHER RACES > 60 ML/MIN (>=60 (CALC)); HDL CHOLESTEROL 31 mg/dL (39.0-59.0); POTASSIUM 4.5 mmol/l (3.5-5.1); SGOT/AST 23 u/l (9-36); SODIUM 133 mmol/l (137-146); TOTAL PROTEIN 5.1 g/dL (6.3-8.2); TOTAL TRIGLYCERIDES 53 mg/dl (0-149); VLDL CHOLESTROL 11 mg/dl (0-48 (CALC))
[2023-05-17 05:50] LABS: TOTAL CHOLESTEROL 112 mg/dl (0-199)
[2023-05-18 00:10] VITALS: BP 144/64
[2023-05-18 03:42] VITALS: BP 127/52
[2023-05-18 05:35] LABS: ALBUMIN 2.6 g/dL (3.2-5.0); ALKALINE PHOSPHATASE 79 u/l (38-126); ANION GAP 7 (6-22 (CALC)); BUN 9 mg/dL (8-23); BUN/CREATININE RATIO 11 (12-20 (CALC)); CARBON DIOXIDE 24 mmol/l (22-30); CHLORIDE 106 mmol/l (95-108); CREATININE 0.8 mg/dL (0.5-1.0); GFR FOR AFR.AMER. > 60 ML/MIN (>=60 (CALC)); GFR OTHER RACES > 60 ML/MIN (>=60 (CALC)); POTASSIUM 4.4 mmol/l (3.5-5.1); SGOT/AST 18 u/l (9-36); SODIUM 133 mmol/l (137-146); TOTAL PROTEIN 4.8 g/dL (6.3-8.2)
[2023-05-18 05:42] LABS: BILIRUBIN, TOTAL 0.1 mg/dL (0.02-1.3)
[2023-05-18 05:43] LABS: BASO% 0.5 % (0-3); EOS% 3.4 % (0-8); HEMATOCRIT 29.9 % (37.0-47.0); HEMOGLOBIN 9.2 g/dl (12.0-16.0); IMMATURE GRANULOCYTES 0.4 % (0.0-5.0); LYMPH% 16.4 % (15-41); MEAN CELL VOLUME 84.2 fL CALC (80.0-100.0); MEAN CORPUSCULAR HGB 25.9 pG CALC (26.0-32.0); MEAN CORPUSCULAR HGB CONC 30.8 g/dL CAL (32.0-36.0); MONO% 14.1 % (2-13); NEUT# 3.69 thou/uL (2.00-7.15); NEUT% 65.2 % (42-76); RED BLOOD COUNT 3.55 mill/uL (4.20-5.60); RED CELL DISTRI WIDTH 16.8 % (11.5-15.5)
[2023-05-18 07:12] VITALS: BP 139/55
[2023-05-18 15:26] VITALS: BP 147/71
[2023-05-18 20:10] VITALS: BP 133/46
[2023-05-19] VITALS (9 sets, daily range): BP systolic 129–146; BP diastolic 42–66
[2023-05-19 05:43] LABS: BASO% 0.5 % (0-3); EOS% 4.4 % (0-8); HEMATOCRIT 30.4 % (37.0-47.0); HEMOGLOBIN 9.4 g/dl (12.0-16.0); IMMATURE GRANULOCYTES 0.7 % (0.0-5.0); MEAN CORPUSCULAR HGB CONC 30.9 g/dL CAL (32.0-36.0); MONO% 14.5 % (2-13); NEUT# 3.52 thou/uL (2.00-7.15); NEUT% 63.9 % (42-76); RED BLOOD COUNT 3.62 mill/uL (4.20-5.60); RED CELL DISTRI WIDTH 16.5 % (11.5-15.5)
[2023-05-19 05:55] LABS: ANION GAP 5 (6-22 (CALC)); BUN 8 mg/dL (8-23); BUN/CREATININE RATIO 11 (12-20 (CALC)); CARBON DIOXIDE 28 mmol/l (22-30); CHLORIDE 104 mmol/l (95-108); CREATININE 0.8 mg/dL (0.5-1.0); GFR FOR AFR.AMER. > 60 ML/MIN (>=60 (CALC)); GFR OTHER RACES > 60 ML/MIN (>=60 (CALC)); POTASSIUM 4.3 mmol/l (3.5-5.1); SODIUM 133 mmol/l (137-146)
[2023-05-20 03:51] VITALS: BP 128/63
[2023-05-20 06:42] VITALS: BP 133/44
[2023-05-20 06:49] LABS: BASO% 0.3 % (0-3); EOS% 4.4 % (0-8); HEMATOCRIT 34.2 % (37.0-47.0); HEMOGLOBIN 10.2 g/dl (12.0-16.0); IMMATURE GRANULOCYTES 0.8 % (0.0-5.0); LYMPH% 20.9 % (15-41); MEAN CELL VOLUME 84.7 fL CALC (80.0-100.0); MEAN CORPUSCULAR HGB 25.2 pG CALC (26.0-32.0); MEAN CORPUSCULAR HGB CONC 29.8 g/dL CAL (32.0-36.0); MONO% 12.3 % (2-13); NEUT# 3.88 thou/uL (2.00-7.15); NEUT% 61.3 % (42-76); RED BLOOD COUNT 4.04 mill/uL (4.20-5.60); RED CELL DISTRI WIDTH 16.6 % (11.5-15.5)
[2023-05-20 07:21] LABS: ALBUMIN 3.1 g/dL (3.2-5.0); ALKALINE PHOSPHATASE 82 u/l (38-126); ANION GAP 9 (6-22 (CALC)); BUN 10 mg/dL (8-23); BUN/CREATININE RATIO 9 (12-20 (CALC)); CARBON DIOXIDE 27 mmol/l (22-30); CHLORIDE 103 mmol/l (95-108); GFR FOR AFR.AMER. > 60 ML/MIN (>=60 (CALC)); GFR OTHER RACES 53 ML/MIN (>=60 (CALC)); POTASSIUM 4.5 mmol/l (3.5-5.1); SGOT/AST 21 u/l (9-36); SODIUM 134 mmol/l (137-146); TOTAL PROTEIN 5.5 g/dL (6.3-8.2)
[2023-05-20 07:30] LABS: BILIRUBIN, TOTAL 0.2 mg/dL (0.02-1.3)
[2023-05-20 07:39] VITALS: BP 133/44
[2023-05-20] MEDS ORDERED: CIPROFLOXACN500 MG PO (09:26)
[2023-05-20 10:43] VITALS: BP 138/68
[2023-05-20 10:59] VITALS: BP 138/68
[2023-05-20] MEDS ORDERED: PERCOCET 5/325M1 TAB PO (11:02)
== END 2023-05-20 13:55 | DRG 571 ==
LOC: ICU 15:42 → MS2 05-16 16:20
PROVIDERS: Nurse Practitioner Family; Student in an Organized Health Care Education/Training Program; Surgery; ADMIT Student in an Organized Health Care Education/Training Program; ATTEND Student in an Organized Health Care Education/Training Program
PROC: 0JBP0ZZ Excision of Left Lower Leg Subcutaneous Tissue and Fascia, Open Approach (ICD-10-PCS; principal; 2023-05-17)
DX: S80.02XA Contusion of left knee, initial encounter (principal); L03.116 Cellulitis of left lower limb; Z68.41 Body mass index [BMI] 40.0-44.9, adult; B96.20 Unspecified Escherichia coli [E. coli] as the cause of diseases classified elsewhere; I12.9 Hypertensive chronic kidney disease with stage 1 through stage 4 chronic kidney disease, or unspecified chronic kidney disease; E11.22 Type 2 diabetes mellitus with diabetic chronic kidney disease; N18.30 Chronic kidney disease, stage 3 unspecified; J44.9 Chronic obstructive pulmonary disease, unspecified; K59.00 Constipation, unspecified; E03.9 Hypothyroidism, unspecified; E66.01 Morbid (severe) obesity due to excess calories; V89.2XXA Person injured in unspecified motor-vehicle accident, traffic, initial encounter; Z87.891 Personal history of nicotine dependence; Z20.822 Contact with and (suspected) exposure to COVID-19

== ENCOUNTER 2023-10-08 07:07 | Observation (INO) | payer MEDICARE, BC ==
[~2023-10-08] VITALS: Ht 167.6 cm; Wt 98.4 kg
[2023-10-08] VITALS (13 sets, daily range): BP systolic 118–148; BP diastolic 50–79
[~2023-10-08 07:07] MED LIST changes: +BUSPAR5 MG PO; +CIPROFLOXACN500 MG PO; +FUROSEMIDE20 MG PO; +LASIX 40 MG TAB40 MG PO; +LEVOTHYROXIN125 MCG PO; +PERCOCET 5/325M1 TAB PO
--- NOTE | 2023-10-08 07:09 | NUR ---
PATIENT TO ROOM 9 VIA EMS
--- NOTE | 2023-10-08 07:10 | NUR ---
PATIENT ARRIVED VIA EMS ON CPAP. EMS STATES PATIENT WAS SOB. DUE TO HX OF COPD AND CHF THEY PLACED PATIENT ON CPAP DURING TRANSPORT. ONCE IN THE ED. CPAP REMOVED AND PATIENT PLACED ON NASAL CANNULA AT 3L AND SATURATION IS 100%. ABG DRAWN. BLOOD CULTURES BEING OBTAINED BY LAB. V/S ARE ALL STABLE. 18G IN THE RIGHT AC BY EMS FLUSHED AND AND PATENT. AND ADDITIONAL IV ATTEMPTED IN THE LEFT FOREARM AND INFILTRATION OCCURED. SITE BRUISED. PRESSURE DRESSING APPLIED.
[2023-10-08] MEDS ORDERED: LIDOcaine HCl 1% (Local Anesth.) 20 ML VIAL IM STA (07:18)
[2023-10-08] MEDS ORDERED: FUROSEMIDE 40 MG/4 ML SDV IV ONE (07:20)
[2023-10-08] MEDS ORDERED: IPRATROPIUM-Albuterol 0.5MG-2.5MG/3 ML NEB ONE ×2 (07:20)
[2023-10-08] MEDS ORDERED: methylPREDNISolone SODIUM SUCC 125 MG/2 ML SDV IV ONE (07:20)
[2023-10-08] MEDS ORDERED: cefTRIAXone SODIUM 1 GM/VIAL SDV IM ONE (07:20)
[2023-10-08] MEDS ORDERED: DOXYCYCLINE HYCLATE 100 MG in SODIUM CHLORIDE 0.9% 100 ML IV ONE (07:25)
[2023-10-08 07:34] LABS: BASO% 0.5 % (0-3); EOS% 2.3 % (0-8); HEMATOCRIT 41.1 % (37.0-47.0); HEMOGLOBIN 12.6 g/dl (12.0-16.0); IMMATURE GRANULOCYTES 0.3 % (0.0-5.0); LYMPH% 22.2 % (15-41); MEAN CORPUSCULAR HGB 27.3 pG CALC (26.0-32.0); MEAN CORPUSCULAR HGB CONC 30.7 g/dL CAL (32.0-36.0); MONO% 9.5 % (2-13); NEUT# 6.07 thou/uL (2.00-7.15); NEUT% 65.2 % (42-76); RED BLOOD COUNT 4.62 mill/uL (4.20-5.60); RED CELL DISTRI WIDTH 15.3 % (11.5-15.5)
[2023-10-08 07:50] LABS: ALBUMIN 3.9 g/dL (3.2-5.0); ALKALINE PHOSPHATASE 107 u/l (38-126); ANION GAP 4 (6-22 (CALC)); BILIRUBIN, TOTAL 0.5 mg/dL (0.02-1.3); BUN 16 mg/dL (8-23); BUN/CREATININE RATIO 16 (12-20 (CALC)); CARBON DIOXIDE 33 mmol/l (22-30); CHLORIDE 101 mmol/l (95-108); ESTIMATED GFR 56 ML/MIN (>=90 (CALC)); POTASSIUM 3.8 mmol/l (3.5-5.1); SGOT/AST 31 u/l (9-36); SODIUM 135 mmol/l (137-146); TOTAL PROTEIN 6.8 g/dL (6.3-8.2)
--- NOTE | 2023-10-08 07:52 | NUR ---
PATIENT RECIEVING RESPIRATORY TREATMENT. ABTS' INITIATED. PATIENT TAKEN TO CT SCAN AT THIS
[2023-10-08 07:57] LABS: INTERNATIONAL NORMALIZED RATIO 1.1 RATIO (0.7-1.3)
[2023-10-08 07:59] LABS: PROTHROMBIN TIME 10.3 SECONDS (9.0-12.5)
--- NOTE | 2023-10-08 08:41 | NUR ---
patient returned from ct. pso2 remains 96-100% on 3l of oxygen . PUREWIK IN PLACE.
--- NOTE | 2023-10-08 09:52 | NUR ---
IV ACCESS BY EMS IN THE RIGHT AC, INFILTRATED. NEW ACCESS BEING ATTEMPTED. DR. DE LEON AT THE BEDSIDE AND DISCUSSED POC WITH PATIENT ADMISSION PENDING.
--- NOTE | 2023-10-08 10:30 | NUR ---
REPORT RECEIVED FROM MARY WILDER IN ED, PT ARRIVED ON UNIT @ 1051 TRANSPORTED VIA STRETCHER, AMBULATED TO BR THEN TO BED WITH ASSIST ON 2 STAFF. ALERT AND ORIENTED X 4, DENIES PAIN BUT C/O SOB. O2 @ 2L VIA NC IN PLACE, TELE MONITOR IN PLACE, SET UP WITH PUREWICK. CALL ROCHE IN REACH AND BED LOCKED IN LOWEST POSITION.
[2023-10-08] MEDS ORDERED: ACETAMINOPHEN 325 MG/TAB PO PRN (10:40)
[2023-10-08] MEDS ORDERED: MAGNESIUM HYDROXIDE 30 ML UDC PO PRN (10:40)
--- NOTE | 2023-10-08 10:43 | NUR ---
VERBAL REPORT GIVEN TO JUNIOR HERNANDEZ . PATIENT TRANSFERED TO THE FLOOR WITH TELE. #1
[2023-10-08] MEDS ORDERED: IPRATROPIUM-Albuterol 0.5MG-2.5MG/3 ML NEB PRN (10:45)
[2023-10-08] MEDS ORDERED: busPIRone HCL 5 MG/TAB PO SCH (11:00)
[2023-10-08] MEDS ORDERED: AZITHROMYCIN 500 MG in SODIUM CHLORIDE 0.9% 250 ML IV SCH (13:00)
[2023-10-08] MEDS ORDERED: FUROSEMIDE 40 MG/4 ML SDV IV SCH (14:00)
[2023-10-08] MEDS ORDERED: METOPROLOL SUCCINATE 25 MG/TAB-TOPROL XL PO SCH (16:00)
[2023-10-08] MEDS ORDERED: NYSTATIN (Mouth-Throat) 500 MU/UDC UDC PO SCH (17:00)
--- NOTE | 2023-10-08 20:00 | NUR ---
PT RESTING NO DISTRESS NOTED ON ASSESSMENT. VS WNL ON NC 2L LUNGS CLEAR. HEART MONITOR SHOWIND ST 100. PT STATED NO PAIN AT THIS TIME. IV SITE FLUSHED WORKING PROPERLY SL. CALL LIGHT WITHIN REACH. PLAN OF CARE ONGOING.
[2023-10-08] MEDS ORDERED: methylPREDNISolone Sod Succ 40 MG/ML SDV IV SCH (21:00)
[2023-10-08] MEDS ORDERED: ENOXAPARIN SODIUM 40 MG/0.4 ML SYR SC SCH (21:00)
[2023-10-09] VITALS (7 sets, daily range): BP systolic 108–159; BP diastolic 46–89
--- NOTE | 2023-10-09 | NUR ---
PT SLEEPING NURSE TURNED OFF SUPPLEMENT OXYGEN A COUPLE MINUTES LATER O2 READING WA 87% ON RA. NC 2L WAS PLACED BACK ON PT. PT REPORTS NO PAIN AT THIS TIME. CALL LIGHT WITHIN REACH. PLAN OF CARE ONGOING.
[2023-10-09 01:34] LABS: URINE BILIRUBIN - DIPSTICK Negative (NEGATIVE); URINE BLOOD DIPSTICK Negative (NEGATIVE); URINE GLUCOSE - DIPSTICK Negative (NEGATIVE); URINE KETONE Negative (NEGATIVE); URINE LEUK ESTERASE Trace (NEGATIVE); URINE NITRITE - DIPSTICK Negative (Negative); URINE PROTEIN - DIPSTICK Negative (NEG-TRACE); URINE UROBILINOGEN - DIPSTICK 0.2 E.U./dL (0.2)
[2023-10-09 01:42] LABS: URINE COLOR Yellow
--- NOTE | 2023-10-09 04:02 | NUR ---
PT SLEEPING NO DISTRESS NOTED ON EXAM. NO CHANGE. CALL LIGHT WITHIN REACH. PLAN OF CARE ONGOING.
[2023-10-09 05:32] LABS: BASO% 0.1 % (0-3); HEMATOCRIT 40.1 % (37.0-47.0); HEMOGLOBIN 12.7 g/dl (12.0-16.0); IMMATURE GRANULOCYTES 0.3 % (0.0-5.0); LYMPH% 7.9 % (15-41); MEAN CELL VOLUME 87.6 fL CALC (80.0-100.0); MEAN CORPUSCULAR HGB 27.7 pG CALC (26.0-32.0); MEAN CORPUSCULAR HGB CONC 31.7 g/dL CAL (32.0-36.0); MONO% 1.7 % (2-13); NEUT# 12.09 thou/uL (2.00-7.15); RED BLOOD COUNT 4.58 mill/uL (4.20-5.60)
[2023-10-09 05:59] LABS: ALBUMIN 3.6 g/dL (3.2-5.0); MAGNESIUM 2.2 mg/dL (1.6-2.3); POTASSIUM 4.1 mmol/l (3.5-5.1); TOTAL PROTEIN 6.1 g/dL (6.3-8.2)
[2023-10-09] MEDS ORDERED: LEVOTHYROXINE SODIUM 125 MCG/TAB PO SCH (06:00)
[2023-10-09 06:10] LABS: BILIRUBIN, TOTAL 0.2 mg/dL (0.02-1.3)
--- NOTE | 2023-10-09 08:45 | NUR ---
GALA A/O X3; ON 2L OF ; BREATHIN UNLABORED AND EVEN; DENIED ANY PAINL DENIED NEEDING ANYTHING; DENIED ANY N/D/V AT THIS TIME; PATIENT STATES SHE HAD SOME DISCOMORT WHEN SWALOWING; DIET CHANGED FROM REGULAR TO PURE; FLUIDS MOVED TO THICKEN AND DR. YANEZ NOTIFIED AND SPEECH CONSULT IN PLACE; LAC IV SITE CLEAN AND INTACT SALINE LOCKED WITH NO ISSUES WHEN FLUSHED; PRODUCTIVE COUGH WITH CLEAR SPUTUM; PATIENT SITTING IN BED IN SEMI CORCORAN POSTION; CALL LIGHT WITHIN REACH,VERBALIZED UNDERSTANDING ON HOW TO USE, PERSONAL ITEMS WITHIN REACH,BED IN LOWEST POSTION
[2023-10-09] MEDS ORDERED: LOSARTAN Potassium 25 MG/TAB PO SCH (09:00)
[2023-10-09] MEDS ORDERED: METOPROLOL SUCCINATE 25 MG/TAB-TOPROL XL PO SCH (09:00)
[2023-10-09] MEDS ORDERED: ASPIRIN EC 81 MG/TAB PO SCH (09:00)
[2023-10-09] MEDS ORDERED: GUAIFENESIN 200 MG/10 ML UDC PO PRN (11:25)
[2023-10-09] MEDS ORDERED: LORazepam 2 MG/ML IV PRN (12:00)
--- NOTE | 2023-10-09 12:50 | NUR ---
WARREN A/O X3; ON 2L O2 ; BREATHING UNLABORED; DENIED ANY PAIN; DENIED ANY N/D/V AT THIS TIME; PATIENT REQUESTING SOEM NASAL SPRAY STATING THERE IS SOME DISCOMFORT; IV SITE IN LAC CLEAN AND INTACT SALINE LOCKED WITH NO ISSUES; MEDICATION REVIWED; CALL LIGHT WITHIN REACH,VERBALIZED UNDERSTANDING ON HOW TO USE, PERSONAL ITEMS WITHIN REACH,BED IN LOWEST POSTION
[2023-10-09] MEDS ORDERED: FLUTICASONE PROPIONATE (Nasal) 50MCG/SPRAY INH SCH (13:00)
--- NOTE | 2023-10-09 15:51 | NUR ---
PATIENT A/O X3; ON 2L O2; BREATHING UNLABORED; DENIED ANY PAIN; DENIED ANY N/D/V AT THIS TIME; DENIED NEEDING ANYTHING; MEDICATION REVIWED; NO S/S DISTRESS AT THIS TIME; COMPAINTS OF DISCOMFORT IN HER NOSE; IV SITE ON LAC CLEAN AND INTACT SALINE LOCKED WITH NO ISSUES; CALL LIGHT WITHIN REACH,VERBALIZED UNDERSTANDING ONHOW TO USE, PERSONAL ITEMS WITHIN REACH,BED IN LOWEST POSTION
--- NOTE | 2023-10-09 20:00 | NUR ---
PT RESTING NO DISTRESS NOTED ON EXAM. VS WNL ON NC 2L. IV SITE FLUSHED WORKING PROPERLY. GENERALIZED BRUISING. NO PAIN REPORTED AT THIS TIME. CALL LIGHT WITHIN REACH. PLAN OF CARE ONGOING.
[2023-10-09] MEDS ORDERED: MONTELUKAST SODIUM 10 MG/TAB PO SCH (21:00)
--- NOTE | 2023-10-09 22:00 | NUR ---
NC 2L TURNED OFF AND REMOVED PT OXYGEN LEVEL AT 94% ON RA. PT LATER STATED AFTER BEING OFF OF OXYGEN THAT HER STUFFNESS HAS NOT IMPROVED AND SHE WAS ANXIOUS AND SOB. NURSE GAVE ATIVAN IV OXYGEN LEVEL DECREASED TO 88% TO NURSE PLACED PT BACK ON NC 2L.
[2023-10-10] VITALS (7 sets, daily range): BP systolic 111–143; BP diastolic 55–67
--- NOTE | 2023-10-10 | NUR ---
PT RESTING NO DISTRESS NOTED ON EXAM CALL LIGHT WITHIN REACH. PLAN OF CARE ONGOING.
--- NOTE | 2023-10-10 04:36 | NUR ---
PT RESTING NO DISTRESS NOTED ON EXAM. CALL LIGHT WITHIN REACH. PLAN OF CARE ONGOING.
[2023-10-10 06:04] LABS: BASO% 0.1 % (0-3); HEMATOCRIT 39.3 % (37.0-47.0); HEMOGLOBIN 12.3 g/dl (12.0-16.0); IMMATURE GRANULOCYTES 0.1 % (0.0-5.0); LYMPH% 7.6 % (15-41); MEAN CELL VOLUME 87.3 fL CALC (80.0-100.0); MEAN CORPUSCULAR HGB 27.3 pG CALC (26.0-32.0); MEAN CORPUSCULAR HGB CONC 31.3 g/dL CAL (32.0-36.0); MONO% 1.9 % (2-13); NEUT# 11.33 thou/uL (2.00-7.15); NEUT% 90.3 % (42-76); RED BLOOD COUNT 4.5 mill/uL (4.20-5.60); RED CELL DISTRI WIDTH 14.9 % (11.5-15.5)
[2023-10-10 06:39] LABS: ALBUMIN 3.5 g/dL (3.2-5.0); CREATININE 0.9 mg/dL (0.5-1.0); MAGNESIUM 2.2 mg/dL (1.6-2.3); POTASSIUM 4.1 mmol/l (3.5-5.1); TOTAL PROTEIN 5.9 g/dL (6.3-8.2)
[2023-10-10 06:40] LABS: BILIRUBIN, TOTAL 0.3 mg/dL (0.02-1.3)
--- NOTE | 2023-10-10 07:44 | NUR ---
PATIENT A/O X3; ON 2L OF ; BREATHING UNLABORED AND EVEM; NO S/S OF DISTRESS; DENIED ANY PAIN; DEIED ANY N/D/V AT THIS TIME; IV IN LAC CLEAN AND INTACT SSLINE LOCKED WITH NO ISSUES; FEMALE PUR WICK IN PLACE; MEDICATION REVIEWED; PATIENT STATES SHE FEEL A LITTLE ANXIOUS; PATIENT SITING SEMI CORCORAN POSTION IN BED; CALL LIGHT WITHIN REACH,VERBALIZED UNDERSTANDING ON HOW TO USE, PERSONAL ITEMS WITHIN REACH,BED IN LOWEST POSTION
[2023-10-10] MEDS ORDERED: FUROSEMIDE 40 MG/4 ML SDV IV SCH (09:00)
--- NOTE | 2023-10-10 09:31 | NUR ---
PRELIMINARY BLOOD CULTURE RESULTS REPORTED TO DR YANEZ 04/24 G+ COCCI. WAIT UNTIL FINAL RESULTS TO DETERMINE THERAPY MODIFICATION @[id number]
--- NOTE | 2023-10-10 10:54 | NUR ---
patient brief checked , patient still dry.
--- NOTE | 2023-10-10 11:13 | NUR ---
SKIN CHECK COMPLETED
--- NOTE | 2023-10-10 12:58 | NUR ---
PATIENT A/O X3; ON 2L OF O2; BREATHING UNLABORED AND EVEN; NO S/S OF DISTRESS AT THIS TIME; DENIED ANY PAIN; DENIED ANY N/D/V AT THIS TIME; DENIED ANY SOB; LAC IV SITE CLEAN AND INTCAT SALINE LOCKED WITH NO ISSUES; TELE LEADS ARE ATTACHED AND WORKING WITH SUE SSUES; FEMALE APOLINAR WORKING WITH NO ISSUES; MEDICATION REVIWED; CALL LIGHT WITHIN REACH,VERBALIZED UNDERSTANDING ON HOW TO USE, PERSONAL ITEMS WITHIN REACH,BED IN LOWEST POSTION
--- NOTE | 2023-10-10 16:02 | NUR ---
WARREN A/O X2; ON 2L ; NO S/S OF DISTRESS; BREATHINGUNLABORED AND EVEN; DENIED ANY PAIN; DENIED ANY PAIN; DENIED ANY D/V/N AT THIS TIME; IV IN LAC CLEAN AND INTACT SALINE LOCKED WITH NO ISSUES MEDICATION REVIEWED; PATIENT SITTING IN BED IN SEMI CORCORAN POSTION; FEMALE ENIDWIRHONDA WORKING WITH NO ISSUES; HUGO LIGHT WITHIN REACH,VERBALIZED UNDERSTANDING ON HOW TO USE, PERSONAL ITEMS WITHIN REACH, BED IN LOWEST POSTION
--- NOTE | 2023-10-10 20:00 | NUR ---
BEDSIDE SHIFT REPORT COMPLETED. CALL LIGHT WITHIN REACH. NO C/O NOTED AT PRESENT TIME.
--- NOTE | 2023-10-11 | NUR ---
RESTING IN BED WITH EYES CLOSED. RESP EVEN AND UNLABORED. NO C/O NOTED
[2023-10-11 00:08] VITALS: BP 135/57
--- NOTE | 2023-10-11 04:00 | NUR ---
NO C/O NOTED. SLEPT WELL THROUGHOUT NIGHT.
[2023-10-11 04:16] VITALS: BP 117/60
[2023-10-11 05:44] LABS: BASO% 0.1 % (0-3); HEMATOCRIT 37.4 % (37.0-47.0); HEMOGLOBIN 11.8 g/dl (12.0-16.0); IMMATURE GRANULOCYTES 0.2 % (0.0-5.0); LYMPH% 5.6 % (15-41); MEAN CORPUSCULAR HGB 27.8 pG CALC (26.0-32.0); MEAN CORPUSCULAR HGB CONC 31.6 g/dL CAL (32.0-36.0); MONO% 1.4 % (2-13); NEUT# 10.92 thou/uL (2.00-7.15); NEUT% 92.7 % (42-76); RED BLOOD COUNT 4.25 mill/uL (4.20-5.60); RED CELL DISTRI WIDTH 14.7 % (11.5-15.5)
[2023-10-11 05:56] LABS: ALBUMIN 3.1 g/dL (3.2-5.0); BILIRUBIN, TOTAL 0.2 mg/dL (0.02-1.3); CREATININE 0.9 mg/dL (0.5-1.0); MAGNESIUM 2.4 mg/dL (1.6-2.3); POTASSIUM 4.1 mmol/l (3.5-5.1); TOTAL PROTEIN 5.4 g/dL (6.3-8.2)
[2023-10-11 06:23] VITALS: BP 121/61
--- NOTE | 2023-10-11 08:00 | NUR ---
PT IN BED WITH HOB UP. PT IS ALERT AND ORIENTED X3, PT HAS NO C/O PAIN AT THIS TIME. PT IV SITE TO LAC CLEAN AND INTACT. PT HAS TELE ON WITH ALL LEADS ATTACHED. PT CONTINUES ON O2 @ 2 LITERS VIA NC. PT HAS PUREWICK IN PLACE WITH CLEAR, YELLOW URINE OUT IN CANISTER. PT HAS CALL LIGHT WITHIN REACH AND SAFETY MEASURES IN PLACE AT THIS TIME.
[2023-10-11 10:32] VITALS: BP 115/59
[2023-10-11] MEDS ORDERED: VIBRAMYCIN100 M2 PO (11:47)
[2023-10-11] MEDS ORDERED: PREDNISONE50 MG PO (11:47)
[2023-10-11] MEDS ORDERED: AZITHROMYCIN 250 MG/TAB PO SCH (13:00)
== END 2023-10-11 13:53 | disposition home health service (06) ==
LOC: ED 07:07 → ED-I 09:28 → ED 09:42 → MS2 09:43
PROVIDERS: Family Medicine; Nurse Practitioner Family; ADMIT Student in an Organized Health Care Education/Training Program; ATTEND Student in an Organized Health Care Education/Training Program
DX: J44.1 Chronic obstructive pulmonary disease with (acute) exacerbation (principal); J96.01 Acute respiratory failure with hypoxia; I13.0 Hypertensive heart and chronic kidney disease with heart failure and stage 1 through stage 4 chronic kidney disease, or unspecified chronic kidney disease; E11.22 Type 2 diabetes mellitus with diabetic chronic kidney disease; I50.9 Heart failure, unspecified; N18.30 Chronic kidney disease, stage 3 unspecified; B37.0 Candidal stomatitis; J43.9 Emphysema, unspecified; E03.9 Hypothyroidism, unspecified; E66.01 Morbid (severe) obesity due to excess calories; R13.10 Dysphagia, unspecified; Z87.891 Personal history of nicotine dependence; Z20.822 Contact with and (suspected) exposure to COVID-19
CPT/HCPCS: J1650; J2060; Q9967

== ENCOUNTER 2023-10-12 07:27 | Observation (INO) | payer MEDICARE, BC ==
[~2023-10-12] VITALS: Ht 167.6 cm; Wt 98.4 kg
[2023-10-12] VITALS (35 sets, daily range): BP systolic 34–160; BP diastolic 20–94
[~2023-10-12 07:27] MED LIST changes: +VIBRAMYCIN100 M2 PO
[2023-10-12 08:24] LABS: BASO% 0.1 % (0-3); EOS% 0.3 % (0-8); HEMATOCRIT 42.1 % (37.0-47.0); HEMOGLOBIN 12.9 g/dl (12.0-16.0); IMMATURE GRANULOCYTES 0.3 % (0.0-5.0); LYMPH% 19.1 % (15-41); MEAN CELL VOLUME 88.4 fL CALC (80.0-100.0); MEAN CORPUSCULAR HGB 27.1 pG CALC (26.0-32.0); MEAN CORPUSCULAR HGB CONC 30.6 g/dL CAL (32.0-36.0); MONO% 11.6 % (2-13); NEUT# 10.5 thou/uL (2.00-7.15); NEUT% 68.6 % (42-76); RED BLOOD COUNT 4.76 mill/uL (4.20-5.60); RED CELL DISTRI WIDTH 14.9 % (11.5-15.5)
[2023-10-12 08:28] LABS: INTERNATIONAL NORMALIZED RATIO 1.1 RATIO (0.7-1.3)
[2023-10-12 08:30] LABS: CREATININE 1.1 mg/dL (0.5-1.0); MAGNESIUM 2.4 mg/dL (1.6-2.3)
[2023-10-12 08:37] LABS: PROTHROMBIN TIME 10.4 SECONDS (9.0-12.5)
[2023-10-12 08:38] LABS: ALBUMIN 3.8 g/dL (3.2-5.0); BILIRUBIN, TOTAL 0.4 mg/dL (0.02-1.3); POTASSIUM 3.2 mmol/l (3.5-5.1); TOTAL PROTEIN 6.6 g/dL (6.3-8.2)
[2023-10-12 10:16] LABS: URINE BILIRUBIN - DIPSTICK Negative (NEGATIVE); URINE BLOOD DIPSTICK Negative (NEGATIVE); URINE GLUCOSE - DIPSTICK Negative (NEGATIVE); URINE KETONE Negative (NEGATIVE); URINE LEUK ESTERASE Negative (NEGATIVE); URINE NITRITE - DIPSTICK Negative (Negative); URINE PROTEIN - DIPSTICK Negative (NEG-TRACE); URINE UROBILINOGEN - DIPSTICK 0.2 E.U./dL (0.2)
[2023-10-12 10:17] LABS: URINE COLOR Yellow
[2023-10-12] MEDS ORDERED: ONDANSETRON HCl 4 MG/2 ML SDV IV ONE (10:55)
[2023-10-12] MEDS ORDERED: ACETAMINOPHEN 325 MG/TAB PO PRN (12:20)
[2023-10-12] MEDS ORDERED: MAGNESIUM HYDROXIDE 30 ML UDC PO PRN (12:20)
[2023-10-12] MEDS ORDERED: DEXTROSE 250 ML IV PRN (12:20)
[2023-10-12] MEDS ORDERED: IPRATROPIUM-Albuterol 0.5MG-2.5MG/3 ML NEB PRN (19:35)
[2023-10-12] MEDS ORDERED: ENOXAPARIN SODIUM 40 MG/0.4 ML SYR SC SCH (21:00)
[2023-10-13 04:00] VITALS: BP 137/54
[2023-10-13 04:22] VITALS: BP 137/54
[2023-10-13] MEDS ORDERED: LEVOTHYROXINE SODIUM 125 MCG/TAB PO SCH (06:00)
[2023-10-13 06:06] LABS: BASO% 0.3 % (0-3); EOS% 1.3 % (0-8); HEMATOCRIT 42.3 % (37.0-47.0); HEMOGLOBIN 13.1 g/dl (12.0-16.0); IMMATURE GRANULOCYTES 0.2 % (0.0-5.0); LYMPH% 12.3 % (15-41); MEAN CELL VOLUME 88.9 fL CALC (80.0-100.0); MEAN CORPUSCULAR HGB 27.5 pG CALC (26.0-32.0); MONO% 10.4 % (2-13); NEUT% 75.5 % (42-76); RED BLOOD COUNT 4.76 mill/uL (4.20-5.60); RED CELL DISTRI WIDTH 15.2 % (11.5-15.5)
[2023-10-13 06:20] LABS: ALBUMIN 3.5 g/dL (3.2-5.0); BILIRUBIN, TOTAL 0.5 mg/dL (0.02-1.3); MAGNESIUM 2.2 mg/dL (1.6-2.3); POTASSIUM 3.5 mmol/l (3.5-5.1); TOTAL PROTEIN 5.7 g/dL (6.3-8.2)
[2023-10-13 06:25] LABS: CREATININE 0.8 mg/dL (0.5-1.0)
[2023-10-13 07:18] VITALS: BP 110/54
[2023-10-13] MEDS ORDERED: predniSONE 20 MG/TAB PO SCH (09:00)
[2023-10-13] MEDS ORDERED: ASPIRIN EC 81 MG/TAB PO SCH (09:00)
[2023-10-13] MEDS ORDERED: FUROSEMIDE 40 MG/4 ML SDV IV SCH (09:00)
[2023-10-13] MEDS ORDERED: DOXYCYCLINE HYCLATE 100 MG/CAP PO SCH (09:00)
[2023-10-13] MEDS ORDERED: PYRIDOSTIGMINE BROMIDE PO SCH ×2 (11:00→22:00)
[2023-10-13 15:10] VITALS: BP 131/66
[2023-10-13 18:50] VITALS: BP 112/43
[2023-10-13 19:00] VITALS: BP 112/43
[2023-10-14 04:00] VITALS: BP 103/39
[2023-10-14 04:30] VITALS: BP 103/39
[2023-10-14 06:52] LABS: BASO% 0.1 % (0-3); EOS% 0.3 % (0-8); HEMOGLOBIN 12.9 g/dl (12.0-16.0); IMMATURE GRANULOCYTES 1.1 % (0.0-5.0); MEAN CELL VOLUME 86.9 fL CALC (80.0-100.0); MEAN CORPUSCULAR HGB 27.3 pG CALC (26.0-32.0); MEAN CORPUSCULAR HGB CONC 31.5 g/dL CAL (32.0-36.0); MONO% 8.8 % (2-13); NEUT# 11.6 thou/uL (2.00-7.15); NEUT% 77.7 % (42-76); RED BLOOD COUNT 4.72 mill/uL (4.20-5.60); RED CELL DISTRI WIDTH 14.5 % (11.5-15.5)
[2023-10-14 07:08] LABS: ALBUMIN 3.2 g/dL (3.2-5.0); BILIRUBIN, TOTAL 0.3 mg/dL (0.02-1.3); CREATININE 0.8 mg/dL (0.5-1.0); MAGNESIUM 2.1 mg/dL (1.6-2.3); POTASSIUM 3.4 mmol/l (3.5-5.1); TOTAL PROTEIN 5.5 g/dL (6.3-8.2)
[2023-10-14 07:16] VITALS: BP 104/40
[2023-10-14] MEDS ORDERED: POTASSIUM CHLORIDE 20 MEQ/PKT POWDER PO SCH (09:00)
[2023-10-14 15:21] VITALS: BP 114/46
[2023-10-14 18:30] VITALS: BP 119/51
[2023-10-14 18:55] VITALS: BP 119/51
[2023-10-15 03:57] VITALS: BP 124/41
[2023-10-15 05:00] VITALS: BP 124/41
[2023-10-15 06:19] LABS: BASO% 0.1 % (0-3); EOS% 0.3 % (0-8); HEMATOCRIT 37.7 % (37.0-47.0); HEMOGLOBIN 11.9 g/dl (12.0-16.0); IMMATURE GRANULOCYTES 0.9 % (0.0-5.0); LYMPH% 9.8 % (15-41); MEAN CELL VOLUME 86.7 fL CALC (80.0-100.0); MEAN CORPUSCULAR HGB 27.4 pG CALC (26.0-32.0); MEAN CORPUSCULAR HGB CONC 31.6 g/dL CAL (32.0-36.0); MONO% 8.3 % (2-13); NEUT# 11.33 thou/uL (2.00-7.15); NEUT% 80.6 % (42-76); RED BLOOD COUNT 4.35 mill/uL (4.20-5.60); RED CELL DISTRI WIDTH 14.7 % (11.5-15.5)
[2023-10-15 06:33] LABS: ALBUMIN 3.1 g/dL (3.2-5.0); BILIRUBIN, TOTAL 0.3 mg/dL (0.02-1.3); POTASSIUM 3.4 mmol/l (3.5-5.1); TOTAL PROTEIN 5.3 g/dL (6.3-8.2)
[2023-10-15 08:00] VITALS: BP 129/47
[2023-10-15] MEDS ORDERED: LACTATED RINGER'S 1,000 ML IV ONE (10:35)
[2023-10-15] MEDS ORDERED: LIDOCAINE HCL 2% 2ML SDV IV ONE (12:31)
[2023-10-15] MEDS ORDERED: GLYCOPYRROLATE 0.2 MG/ML IV ONE (12:31)
[2023-10-15] MEDS ORDERED: PROPOFOL 200 MG/20 ML VIAL IV ONE (12:31)
[2023-10-15 12:32] VITALS: BP 150/57
[2023-10-15] MEDS ORDERED: POTASSIUM CHLORIDE 20 MEQ/PKT POWDER PO SCH (13:30)
[2023-10-15 19:47] VITALS: BP 121/56
[2023-10-15 20:11] VITALS: BP 121/56
[2023-10-16 04:20] VITALS: BP 123/39
[2023-10-16 05:44] LABS: BASO% 0.1 % (0-3); EOS% 0.1 % (0-8); HEMATOCRIT 37.7 % (37.0-47.0); HEMOGLOBIN 11.7 g/dl (12.0-16.0); IMMATURE GRANULOCYTES 1.1 % (0.0-5.0); LYMPH% 10.7 % (15-41); MEAN CELL VOLUME 87.9 fL CALC (80.0-100.0); MEAN CORPUSCULAR HGB 27.3 pG CALC (26.0-32.0); MONO% 5.5 % (2-13); NEUT# 11.05 thou/uL (2.00-7.15); NEUT% 82.5 % (42-76); RED BLOOD COUNT 4.29 mill/uL (4.20-5.60); RED CELL DISTRI WIDTH 15.2 % (11.5-15.5)
[2023-10-16 06:12] LABS: BILIRUBIN, TOTAL 0.3 mg/dL (0.02-1.3); CREATININE 0.9 mg/dL (0.5-1.0); POTASSIUM 3.9 mmol/l (3.5-5.1); TOTAL PROTEIN 5.2 g/dL (6.3-8.2)
[2023-10-16 07:34] VITALS: BP 128/47
[2023-10-16] MEDS ORDERED: MESTINON60 MG PO (08:58)
[2023-10-16] MEDS ORDERED: PANTOPRAZOLE SO40 M1 PO (08:59)
[2023-10-16] MEDS ORDERED: PREDNISONE20 MG PO (08:59)
[2023-10-16] MEDS ORDERED: PANTOPRAZOLE SODIUM Sesquihydr 40 MG/TAB PO SCH (09:00)
== END 2023-10-16 10:19 | disposition home health service (06) ==
LOC: ED 07:27 → ED-I 11:56 → ED 12:21 → MS2 12:22
PROVIDERS: Family Medicine; Nurse Practitioner Family; ADMIT Student in an Organized Health Care Education/Training Program; ATTEND Student in an Organized Health Care Education/Training Program
PROC: 0DJ08ZZ Inspection of Upper Intestinal Tract, Via Natural or Artificial Opening Endoscopic (ICD-10-PCS; principal; 2023-10-15)
DX: R47.1 Dysarthria and anarthria (principal); R13.10 Dysphagia, unspecified; K44.9 Diaphragmatic hernia without obstruction or gangrene; J96.11 Chronic respiratory failure with hypoxia; I13.0 Hypertensive heart and chronic kidney disease with heart failure and stage 1 through stage 4 chronic kidney disease, or unspecified chronic kidney disease; E11.22 Type 2 diabetes mellitus with diabetic chronic kidney disease; I50.9 Heart failure, unspecified; N18.30 Chronic kidney disease, stage 3 unspecified; J43.9 Emphysema, unspecified; E03.9 Hypothyroidism, unspecified; E66.8 Other obesity; R90.89 Other abnormal findings on diagnostic imaging of central nervous system; Z68.34 Body mass index [BMI] 34.0-34.9, adult; Z87.891 Personal history of nicotine dependence; Z20.822 Contact with and (suspected) exposure to COVID-19
CPT/HCPCS: J1650; Q9967

== ENCOUNTER 2024-03-25 05:45 | Emergency (ER) | payer MEDICARE, BC ==
[~2024-03-25] VITALS: Ht 167.6 cm; Wt 109.0 kg
[~2024-03-25 05:45] MED LIST changes: +MESTINON60 MG PO; +PANTOPRAZOLE SO40 M1 PO
[2024-03-25 05:55] VITALS: BP 136/68
[2024-03-25 06:00] VITALS: BP 128/65
[2024-03-25] MEDS ORDERED: ALBUTEROL SULFATE 2.5 MG VIAL IN ONE (06:05)
[2024-03-25] MEDS ORDERED: IPRATROPIUM-Albuterol 0.5MG-2.5MG/3 ML NEB ONE (06:05)
[2024-03-25] MEDS ORDERED: OXYMETAZOLINE HCL 15 ML/BTL ONE (06:10)
[2024-03-25] MEDS ORDERED: PREDNISONE20 MG PO (06:15)
[2024-03-25 06:17] LABS: BASO% 0.3 % (0-3); EOS% 1.4 % (0-8); HEMATOCRIT 33.8 % (37.0-47.0); IMMATURE GRANULOCYTES 4.4 % (0.0-5.0); LYMPH% 11.7 % (15-41); MEAN CELL VOLUME 88.5 fL CALC (80.0-100.0); MEAN CORPUSCULAR HGB 26.2 pG CALC (26.0-32.0); MEAN CORPUSCULAR HGB CONC 29.6 g/dL CAL (32.0-36.0); MONO% 10.3 % (2-13); NEUT# 7.64 thou/uL (2.00-7.15); NEUT% 71.9 % (42-76); RED BLOOD COUNT 3.82 mill/uL (4.20-5.60); RED CELL DISTRI WIDTH 15.1 % (11.5-15.5)
[2024-03-25] MEDS ORDERED: MYCOPHENOLAT500 MG PO (06:17)
[2024-03-25] MEDS ORDERED: PEPCID20 MG PO (06:18)
[2024-03-25 06:31] LABS: ALBUMIN 3.6 g/dL (3.2-5.0); ALKALINE PHOSPHATASE 59 u/l (38-126); ANION GAP 11 (6-22 (CALC)); BILIRUBIN, TOTAL 0.5 mg/dL (0.02-1.3); BUN 20 mg/dL (8-23); BUN/CREATININE RATIO 17 (12-20 (CALC)); CARBON DIOXIDE 31 mmol/l (22-30); CHLORIDE 100 mmol/l (95-108); CREATININE 1.2 mg/dL (0.5-1.0); ESTIMATED GFR 45 ML/MIN (>=90 (CALC)); SGOT/AST 27 u/l (9-36); SODIUM 138 mmol/l (137-146); TOTAL PROTEIN 5.9 g/dL (6.3-8.2)
[2024-03-25 06:40] LABS: PROTHROMBIN TIME 10.3 SECONDS (9.0-12.5)
[2024-03-25 07:00] VITALS: BP 137/54
[2024-03-25 07:10] LABS: D-DIMER 1.66 mg/L (0.19-0.60)
[2024-03-25] MEDS ORDERED: VIBRAMYCIN100 M2 PO (08:08)
[2024-03-25] MEDS ORDERED: VENTOLIN HFA IN (08:08)
[2024-03-25] MEDS ORDERED: PREDNISONE50 MG PO (08:08)
[2024-03-25] MEDS ORDERED: DOXYCYCLINE HYCLATE 100 MG/CAP PO ONE (08:10)
[2024-03-25] MEDS ORDERED: predniSONE 20 MG/TAB PO ONE (08:10)
[2024-03-25 08:13] LABS: URINE BILIRUBIN - DIPSTICK Negative (NEGATIVE); URINE BLOOD DIPSTICK Negative (NEGATIVE); URINE GLUCOSE - DIPSTICK Negative (NEGATIVE); URINE KETONE Negative (NEGATIVE); URINE LEUK ESTERASE Negative (NEGATIVE); URINE NITRITE - DIPSTICK Negative (Negative); URINE PH 6.5 (4.5-8.0); URINE UROBILINOGEN - DIPSTICK 0.2 E.U./dL (0.2)
[2024-03-25 08:19] LABS: URINE COLOR Yellow; URINE PROTEIN - DIPSTICK Trace mg/dL (NEG-TRACE)
[2024-03-25 08:26] VITALS: BP 156/71
== END 2024-03-25 08:53 | disposition home or self-care (01) ==
LOC: ED 05:45
PROVIDERS: Family Medicine
DX: J40 Bronchitis, not specified as acute or chronic (principal); J43.9 Emphysema, unspecified; I50.9 Heart failure, unspecified; N18.30 Chronic kidney disease, stage 3 unspecified; E11.22 Type 2 diabetes mellitus with diabetic chronic kidney disease; E66.9 Obesity, unspecified; Z87.891 Personal history of nicotine dependence; Z20.822 Contact with and (suspected) exposure to COVID-19; R06.02 Shortness of breath